=== PATIENT | female | born 1960 | race Caucasian/White ===

== ENCOUNTER → 2022-02-24 16:30 | Outpatient (CLI) | payer OTHER, SELFPAY ==
--- NOTE | 2022-02-24 16:31 | DI.MG.S_ITS ---
BILATERAL DIGITAL SCREENING MAMMOGRAM 3D/2D WITH CAD: 02/24/2022 CLINICAL: Routine screening. Comparison is made to exams dated: 09/24/2010 mammogram, 08/16/2009 mammogram, and 05/04/2007 mammogram - [facility]. There are scattered fibroglandular elements in both breasts. Current study was also evaluated with a Computer Aided Detection (CAD) system. No significant masses, calcifications, or other findings are seen in either breast. There has been no significant interval change. IMPRESSION: NEGATIVE There is no mammographic evidence of malignancy. A 1 year screening mammogram is recommended. This exam was interpreted at Station ID: [id number]. NOTE: For mammograms, a report in lay terms will be sent to the patient. Approximately 15% of breast malignancies will not be visualized mammographically. In the management of a palpable breast mass, a negative mammogram must not discourage biopsy of a clinically suspicious lesion. Electronically Signed By: Adi Tijerina M.D., jr/elinor:02/25/2022 13:13:01 letter sent: Normal Exam ACR BI-RADS Category 1: Negative 3341F
== END ==
PROVIDERS: Family Provider Family Medicine; PCP Nurse Practitioner; Referring Provider Nurse Practitioner; Visit Provider Nurse Practitioner
DX: Z12.31 Encounter for screening mammogram for malignant neoplasm of breast (principal)
CPT/HCPCS: 77063; 77067

== ENCOUNTER → 2022-03-20 09:19 | Outpatient (CLI) | payer OTHER, SELFPAY ==
[2022-03-20 11:29] LABS: Hematocrit 40.7 % (36-46); Hemoglobin 13.6 g/dL (12.0-16.0); Mean Corpuscular HGB Conc 33.4 % (30-36); Mean Corpuscular Hemoglobin 30.1 PG (26-34); Mean Corpuscular Volume 90.2 fL (80-100); Platelet Count 333 X10^3/uL (150-400); Red Blood Cell Count 4.51 X10^6/uL (4.0-5.2); Red Cell Distribution Width 14.3 % (11.6-14.8); White Blood Cell Count 7.7 X10^3/uL (4.5-11.0)
[2022-03-20 11:45] LABS: Alanine Aminotransferase 35 IU/L (<35); Albumin 4.4 g/dL (3.5-5.0); Albumin Globulin Ratio 1.5 (1.0-2.8); Alkaline Phosphatase 79 U/L (38-126); Aspartate Aminotransferase 27 IU/L (14-36); Bilirubin Total 0.5 mg/dL (0.2-1.3); Blood Urea Nitrogen 23 mg/dL (7-17); Calcium 9.4 mg/dL (8.4-10.2); Carbon Dioxide 31 mmol/L (22-32); Chloride 102 mmol/L (98-107); Cholesterol 235 mg/dL (140-199); Estimated Glomerular Filt Rate > 60 mL/min (>60); Globulin 2.9 g/dL (1.7-4.1); Glucose 100 mg/dL (70-100); HDL Cholesterol 64 mg/dL (40-60); HEMOLYSIS < 15 (0-50); LDL Cholesterol Calculated 151 mg/dL (<100); Potassium 4.1 mmol/L (3.4-5.1); Sodium 140 mmol/L (137-145); Total Protein 7.3 g/dL (6.3-8.2); Triglycerides 98 mg/dL (35-150)
[2022-03-20 12:04] LABS: Free T3, Triiodothyronine Free 3.24 pg/mL (2.77-5.27); Free T4, Direct Thyroxine 1.11 ng/dL (0.78-2.19)
[2022-03-20 12:34] LABS: Hep C Virus Ab w/Reflex Quant NEGATIVE s/c (NEGATIVE)
[2022-03-21 10:01] LABS: Creatinine Urine Random 42.6 mg/dL
[2022-03-21 10:06] LABS: Microalbumin Urine Random < 0.6 mg/dL (0-1.6)
== END ==
LOC: LAB 09:20 → RESP 09:21
PROVIDERS: Family Provider Family Medicine; PCP Nurse Practitioner; Referring Provider Nurse Practitioner; Visit Provider Nurse Practitioner
DX: Z00.00 Encounter for general adult medical examination without abnormal findings (principal); Z11.59 Encounter for screening for other viral diseases
CPT/HCPCS: 36415; 80053; 80061; 82043; 82570; 84439; 84443; 84481; 85027; 86803; 93005

== ENCOUNTER → 2022-05-14 09:12 | Outpatient (CLI) | payer OTHER, SELFPAY ==
--- NOTE | 2022-05-14 09:13 | DI.ECHO.S_ITS ---
[facility] +---------+ : : [address] : : : : [address] : : : : Phone: [phone]+ Echocardiogram Report + + :Name: BRET GUEVARA Study Date: 05/14/2022 Height: 66.5 in : :[facility] ReadingLocation: Weight: 230 lb : : Gender: Female BSA: 2.1 m2 : :: 1960 Age: 61 yrs BP: 165/109 mmHg: :Reason For Study: HYPERTENSION : :Ordering Physician: PAUL, : :MARY Performed By: Cynthia Escamilla : :Referring: MARY MILLER : + + Interpretation Summary The ejection fraction is estimated to be 60-65%. Grae I diastolic dysfunction. The right ventricle is normal in size and function. The right ventricular systolic pressure is estimated to be at least 32 mmHg based on an estimated right atrial pressure of 3 mm Hg. The left atrium is mildly dilated. No significant valvular disease. Procedure: A two-dimensional transthoracic echocardiogram with color flow and Doppler was performed. The study quality was technically adequate. There is no prior echocardiogram noted for this patient. The patient was in sinus bradycardia with heart rates between 48-56 bpm during the exam. Left Ventricle: The left ventricle is normal in size. RWT 0.4, normal geometry. The ejection fraction is estimated to be 60-65%. Left ventricular wall motion is normal. Grae I diastolic dysfunction. Right Ventricle: The right ventricle is normal in size and function. Atria: The left atrium is mildly dilated. Right atrial size is normal. There is no Doppler evidence for an interatrial shunt. Mitral Valve: The mitral valve is normal in structure and function. There is trace mitral regurgitation. Aortic Valve: The aortic valve is trileaflet. The aortic valve opens well. There is no aortic valve stenosis. No aortic regurgitation is present. Tricuspid Valve: The tricuspid valve is normal in structure and function. There is trace tricuspid regurgitation. The right ventricular systolic pressure is estimated to be at least 32 mmHg based on an estimated right atrial pressure of 3 mm Hg. Pulmonic Valve: The pulmonic valve is not well visualized. There is no pulmonic valvular regurgitation. Great Vessels: The aortic root is normal size. The ascending aorta is normal in size. The IVC is of normal diameter and collapses greater than 50% with a sniff. This suggests a low right atrial pressure of 3 mm Hg. Pericardium/ Pleura There is no pericardial effusion. There is no pleural effusion. MMode/2D Measurements & Calculations LVIDd: 5.0 cm LVOT diam: 2.0 cm LVIDs: 3.5 cm Ao root diam: 3.2 cm FS: 30.4 % asc Aorta Diam: 3.5 cm EPSS: 0.75 cm Ao Arch Diam (Prox Trans): 2.6 cm IVSd: 1.1 cm LVPWd: 1.0 cm LV tinsley. diameter/BSA (cm/m^2): 2.3 LV sys. diameter/BSA (cm/m^2): 1.6 LA A2 area: 27.0 cm2 RA long axis: 5.2 cm LA A4 area: 22.4 cm2 RA area: 20.3 cm2 LA length (vol): 5.7 cm RA vol: 67.6 ml LA vol: 90.8 ml RA : 31.7 ml/m2 LA vol index: 42.6 ml/m2 IVC diam: 1.9 cm RVD1 (basal): 3.3 cm RVD2 (mid): 2.7 cm TAPSE: 3.2 cm Doppler Measurements & Calculations Ao V2 max: 137.5 cm/sec LVOT Max Terry: 108.0 cm/sec Ao V2 mean: 107.1 cm/sec LV V1 max P.7 mmHg Ao max P.6 mmHg LV V1 VTI: 24.2 cm Ao mean P.9 mmHg AMNADA(I,D): 4.4 cm2 Ao V2 VTI: 17.5 cm AMANDA(V,D): 2.5 cm2 sev ratio: 1.4 AMANDA indexed to BSA (cm^2/m^2): 2.0 MV E max terry: 81.3 cm/sec TR max terry: 269.1 cm/sec MV A max terry: 67.8 cm/sec TR max P.0 mmHg MV E/A: 1.2 PA V2 max: 93.6 cm/sec Med Peak E' Terry: 8.4 cm/sec PA V2 mean: 66.1 cm/sec E/E' med: 9.7 PA mean P.9 mmHg Lat Peak E' Terry: 7.0 cm/sec PA pr(Accel): 22.5 mmHg E/E' lat: 11.6 E/e' average: 10.6 MV dec time: 0.26 sec [facility] 76.3 ml Reading Physician:PRIYANK
== END ==
PROVIDERS: Family Provider Family Medicine; PCP Nurse Practitioner; Referring Provider Nurse Practitioner; Visit Provider Nurse Practitioner
DX: I10 Essential (primary) hypertension (principal)
CPT/HCPCS: 93306

== ENCOUNTER → 2022-06-25 15:34 | Outpatient (CLI) | payer OTHER, SELFPAY | PROVIDERS: Family Provider Family Medicine; PCP Nurse Practitioner; Referring Provider Physician Assistant; Visit Provider Physician Assistant | DX: J32.9 Chronic sinusitis, unspecified (principal) | CPT/HCPCS: 36415 ==

== ENCOUNTER → 2022-08-24 08:31 | Outpatient (CLI) | payer OTHER, SELFPAY ==
--- NOTE | 2022-08-24 08:33 | DI.RAD.S_ITS ---
PROCEDURE: XR FOOT LT MIN 3V INDICATIONS: Left toe pain after trauma TECHNIQUE: Three views of the foot were acquired. COMPARISON: [facility], CR, XR FOOT 3+ VIEWS LEFT, 06/24/2022, 14:52. FINDINGS: Bones: Intact hardware of 2nd PIP joint arthrodesis, 2nd metatarsal head screws, and 1st phalanx bunionectomy and hallux valgus correction. Mild, stable residual hallux valgus deformity. Possible nondisplaced spiral fracture of the 5th proximal phalanx. Joint alignment remains normal proximally and distally. Soft tissues: No tibiotalar joint effusion. Achilles tendon appears normal. IMPRESSION: 1. Possible nondisplaced 5th proximal phalanx spiral fracture. Correlate with site of tenderness. 2. Intact 1st and 2nd digit hardware. Dictated by: Lilian Jose M.D. on 08/24/2022 at 11:50 Approved by: Lilian Jose M.D. on 08/24/2022 at 11:54
== END ==
PROVIDERS: Family Provider Family Medicine; PCP Nurse Practitioner; Referring Provider Nurse Practitioner; Visit Provider Nurse Practitioner
DX: M79.675 Pain in left toe(s) (principal)
CPT/HCPCS: 73630

== ENCOUNTER → 2022-10-13 14:56 | Outpatient (CLI) | payer OTHER, SELFPAY ==
[2022-10-13 18:46] LABS: Rheumatoid Factor < 8.6 IU/mL (<12.0)
[2022-10-13 22:06] LABS: Erythrocyte Sedimentation Rate 16 MM/HR (0-20)
[2022-10-15 13:47] LABS: ANA Screen, IFA Negative (.)
== END ==
PROVIDERS: Family Provider Family Medicine; PCP Nurse Practitioner; Referring Provider Nurse Practitioner; Visit Provider Nurse Practitioner
DX: M79.671 Pain in right foot (principal); M79.672 Pain in left foot; R79.82 Elevated C-reactive protein (CRP); Z78.9 Other specified health status; Z88.1 Allergy status to other antibiotic agents; A69.23 Arthritis due to Lyme disease
CPT/HCPCS: 36415; 85651; 86038; 86430

== ENCOUNTER → 2022-12-22 09:39 | Outpatient (CLI) | payer OTHER, SELFPAY ==
--- NOTE | 2022-12-22 | DI.RAD.S_ITS ---
PROCEDURE: FL JOINT INJECTION LARGE LT INDICATIONS: Primary osteoarthritis, left shoulder COMPARISON: None. TECHNIQUE: The indications, alternatives, benefits, risks, and complications of the procedure were explained to the patient. Written informed consent was obtained and placed in the chart. The patient was placed in an appropriate position on the fluoroscopy table, and a site was chosen for percutaneous access under fluoroscopic guidance. The site was prepped and draped in a sterile fashion. Local anesthetic was administered using a 1% lidocaine solution. A hypodermic or spinal needle was then used to access the symptomatic joint. Intra-articular location of the needle tip was confirmed by injecting a small amount of contrast, followed by steroid administration. The needle was then withdrawn, and a bandage applied to the puncture site. FINDINGS: Joint injected: Left acromioclavicular joint Medications injected: 2 mL of 40 mg/mL Kenalog and 0.5% Ropivacaine mixture. Patient's pain before injection: 5 out of 10. Patient's pain after injection: 0 out of 10. Complications: None. IMPRESSION: Successful fluoroscopically guided administration of steroid and anaesthetic solution into the left acromioclavicular joint. Dictated by: Gilberto James M.D. on 12/22/2022 at 13:27 Approved by: Gilberto James M.D. on 12/22/2022 at 13:28
== END ==
PROVIDERS: Family Provider Family Medicine; PCP Nurse Practitioner; Referring Provider Orthopaedic Surgery; Visit Provider Orthopaedic Surgery
DX: M19.012 Primary osteoarthritis, left shoulder (principal)
CPT/HCPCS: 20610

== ENCOUNTER → 2022-12-25 08:09 | Outpatient (CLI) | payer OTHER, SELFPAY ==
[2022-12-25 09:06] LABS: Influenza A - CEPHEID Flu A NEGATIVE (NEGATIVE); Influenza B - CEPHEID Flu B NEGATIVE (NEGATIVE); Respiratory Syncytial Virus Negative (Negative)
[2022-12-25 09:07] LABS: COVID-19 CEPHEID 4-PLEX PCR Negative (Negative)
== END ==
PROVIDERS: Family Provider Family Medicine; PCP Nurse Practitioner; Visit Provider Registered Nurse
DX: R05.9 Cough, unspecified (principal); R52 Pain, unspecified; Z20.822 Contact with and (suspected) exposure to COVID-19
CPT/HCPCS: 0241U

== ENCOUNTER → 2023-09-01 13:44 | Outpatient (CLI) | payer OTHER, SELFPAY ==
--- NOTE | 2023-09-01 | DI.US.S_ITS ---
PROCEDURE: US PERIPH VENOUS LOW EXTREM RT INDICATIONS: RIGHT LEG SWELLING. RECENT LEFT FOOT SURGEY. HX OF DVT. TECHNIQUE: Real-time imaging, as well as color and pulse Doppler interrogation, were performed of the lower extremity deep veins from the inguinal ligament to the popliteal fossa, with documentation of the visualized calf veins. COMPARISON: None. FINDINGS: The common femoral, femoral, popliteal, and the visualized calf veins are normally compressible, and free of intraluminal thrombus. Color and pulse Doppler demonstrate normal phasic intraluminal flow. There is normal augmentation response to distal compression maneuver. IMPRESSION: No findings of lower extremity deep venous thrombosis. Approved by: Venancio Giles M.D. on 09/01/2023 at 13:56
--- NOTE | 2023-09-01 13:45 | DI.RAD.S_ITS ---
PROCEDURE: XR KNEE RT 3V INDICATIONS: right knee pain and edema TECHNIQUE: 3 views of the knee were acquired. COMPARISON: None. FINDINGS: Bones: No fractures or dislocations. No suspicious bony lesions. Soft tissues: No joint effusion. No suspicious soft tissue calcifications. IMPRESSION: No visualized acute fracture or dislocation. However, if clinical concern and/or pain persist, short interval imaging followup in 7-10 days is recommended, as occult injury cannot be definitively excluded. Dictated by: Yola Linda M.D. on 09/01/2023 at 14:23 Approved by: Yola Linda M.D. on 09/01/2023 at 14:23
== END ==
PROVIDERS: Family Provider Family Medicine; PCP Nurse Practitioner; Referring Provider Nurse Practitioner; Visit Provider Nurse Practitioner
DX: M25.561 Pain in right knee (principal); Z86.718 Personal history of other venous thrombosis and embolism; M25.461 Effusion, right knee
CPT/HCPCS: 73562; 93971

== ENCOUNTER → 2024-05-24 08:21 | Outpatient (CLI) | payer OTHER, SELFPAY | PROVIDERS: Family Provider Family Medicine; PCP Nurse Practitioner; Visit Provider Student in an Organized Health Care Education/Training Program | DX: J02.9 Acute pharyngitis, unspecified (principal) | CPT/HCPCS: 87070 ==

== ENCOUNTER → 2024-06-29 08:08 | Outpatient (CLI) | payer OTHER, SELFPAY ==
[2024-06-29 08:40] LABS: Hematocrit 41.9 % (36-46); Hemoglobin 14.1 g/dL (12.0-16.0); Mean Corpuscular HGB Conc 33.8 % (30-36); Mean Corpuscular Hemoglobin 30.9 PG (26-34); Mean Corpuscular Volume 91.4 fL (80-100); Platelet Count 317 X10^3/uL (150-400); Red Blood Cell Count 4.58 X10^6/uL (4.0-5.2); Red Cell Distribution Width 14.9 % (11.6-14.8); White Blood Cell Count 6.8 X10^3/uL (4.5-11.0)
[2024-06-29 09:05] LABS: Alanine Aminotransferase 17 IU/L (<35); Albumin 4.3 g/dL (3.5-5.0); Albumin Globulin Ratio 1.8 (1.0-2.8); Alkaline Phosphatase 78 U/L (38-126); Aspartate Aminotransferase 22 IU/L (14-36); BUN Creatinine Ratio 21.7 (6-22); Bilirubin Total 0.7 mg/dL (0.2-1.3); Blood Urea Nitrogen 20 mg/dL (7-17); Calcium 9.9 mg/dL (8.4-10.2); Carbon Dioxide 30 mmol/L (22-32); Chloride 100 mmol/L (98-107); Cholesterol 251 mg/dL (140-199); Estimated Glomerular Filt Rate > 60 mL/min (>60); Globulin 2.4 g/dL (1.7-4.1); Glucose 98 mg/dL (80-110); HDL Cholesterol 55 mg/dL (40-60); HEMOLYSIS < 15 (0-50); LDL Cholesterol Calculated 174 mg/dL (<100); Sodium 139 mmol/L (137-145); Total Protein 6.7 g/dL (6.3-8.2); Triglycerides 108 mg/dL (35-150)
[2024-06-29 09:08] LABS: Hemoglobin A1C% w Est Avg Glu 5.3 % (4.0-6.0)
[2024-06-29 09:17] LABS: Free T3, Triiodothyronine Free 3.19 pg/mL (2.77-5.27)
[2024-06-29 09:31] LABS: Thyroid Stimulating Hormone 3.96 uIU/mL (0.47-4.68)
[2024-06-29 09:52] LABS: Creatinine Urine Random 117.05 mg/dL
[2024-06-29 11:34] LABS: Microalbumin Urine Random < 0.6 mg/dL (0-1.6)
== END ==
PROVIDERS: Family Provider Family Medicine; PCP Nurse Practitioner; Referring Provider Nurse Practitioner; Visit Provider Nurse Practitioner
DX: Z00.00 Encounter for general adult medical examination without abnormal findings (principal)
CPT/HCPCS: 36415; 80053; 80061; 82043; 82570; 83036; 84439; 84443; 84481; 85027

== ENCOUNTER → 2024-11-29 15:22 | Outpatient (CLI) | payer OTHER, SELFPAY | PROVIDERS: Family Provider Family Medicine; PCP Nurse Practitioner; Visit Provider Physician Assistant Surgical | DX: R30.0 Dysuria (principal) | CPT/HCPCS: 87086; 87210 ==

== ENCOUNTER → 2025-01-25 11:42 | Outpatient (CLI) | payer OTHER, SELFPAY ==
--- NOTE | 2025-01-25 11:44 | DI.MG.S_ITS ---
MM screening mammo BI: 01/25/2025. BI-RADS: 0 CLINICAL: 64-year old female for bilateral screening mammogram. Tyrer-Cuzick lifetime risk of 13.4%. No personal or first-degree family history of breast cancer. Current reported family history of breast cancer: maternal grandmother and maternal aunt. The patient reports testing negative for BRCA gene mutation. PRIOR EXAMS 02/24/2022. MAMMOGRAPHY TECHNIQUE: 2D and 3D (tomosynthesis) digital mammographic views obtained, with additional images as needed for full coverage. Current study was also evaluated with a Computer Aided Detection (CAD) system. DENSITY B. There are scattered areas of fibroglandular density. MAMMOGRAPHY FINDINGS Right: MLO only, Central, Middle depth, measuring 1 cm: Asymmetry needing additional imaging evaluation. Left: No suspicious mass, asymmetry, microcalcification, or other abnormality seen. IMPRESSION: Right (Asymmetry): MLO only, Central, Middle depth, measuring 1 cm * Incomplete - asymmetry needing additional imaging evaluation. Left * No evidence of malignancy. RECOMMENDATIONS Right: MLO only, Central, Middle depth * Further evaluation with diagnostic mammography and diagnostic ultrasound. OVERALL ASSESSMENT CATEGORY BI-RADS-0: Incomplete - Need Additional Imaging Evaluation. ELECTRONICALLY SIGNED: Nelly Suarez M.D. on 01/25/2025 at 04:26:50 PM PT Interpreting Station ID: [id number]
== END ==
PROVIDERS: Family Provider Family Medicine; PCP Nurse Practitioner Family; Referring Provider Nurse Practitioner Family; Visit Provider Nurse Practitioner Family
DX: Z12.31 Encounter for screening mammogram for malignant neoplasm of breast (principal); Z80.3 Family history of malignant neoplasm of breast
CPT/HCPCS: 77063; 77067

== ENCOUNTER → 2025-02-23 09:36 | Outpatient (CLI) | payer OTHER, SELFPAY ==
--- NOTE | 2025-02-23 09:36 | DI.US.S_ITS ---
MM diagnostic mammo unilat RT, US breast RT limited: 02/23/2025 BI-RADS: 3 CLINICAL: 64-year old female for right diagnostic mammogram and right diagnostic breast ultrasound that is a recall from screening on 01/25/2025. Tyrer-Cuzick lifetime risk of 13.4%. No personal or first-degree family history of breast cancer. Current reported family history of breast cancer: maternal grandmother and maternal aunt. The patient reports testing negative for BRCA gene mutation. PRIOR EXAMS 01/25/2025, 02/24/2022. MAMMOGRAPHY TECHNIQUE: 2D and 3D (tomosynthesis) digital mammographic views obtained, with additional images as needed for full coverage. Current study was also evaluated with a Computer Aided Detection (CAD) system. ULTRASOUND TECHNIQUE Real-time shepherd scale and color doppler imaging of the area of clinical interest was performed with image documentation. TARGETED Right Breast Ultrasound: Real-time ultrasound exam was performed focused to area of clinical and/or imaging concern. DENSITY Right: B. There are scattered areas of fibroglandular density. MAMMOGRAPHY FINDINGS Right: MLO only, Central, Middle depth, measuring 1.6 x 0.3 cm, previously measuring 1 cm: Correlating with findings on screening mammogram there is an asymmetry seen only on one view that is unchanged in size and appearance. ULTRASOUND FINDINGS Right: Outer at 9:00, 3 cm from nipple, measuring 0.3 cm. Previous report: MLO only, Central: There is a dilated duct containing echogenic material. This could correlate to the mammographic finding. IMPRESSION: Right (Duct): Outer at 9:00, 3 cm from nipple, measuring 0.3 cm. Previous report: MLO only, Central * Probably Benign. RECOMMENDATIONS Right * Six month followup with diagnostic ultrasound and diagnostic mammography. COMMENTS: Findings and recommendations were conveyed to the patient during today's evaluation. OVERALL ASSESSMENT CATEGORY BI-RADS-3: Probably Benign. ELECTRONICALLY SIGNED: Nelly Suarez M.D. on 02/23/2025 at 10:42:35 AM PT Interpreting Station ID: [id number]
== END ==
PROVIDERS: Family Provider Family Medicine; PCP Nurse Practitioner Family; Referring Provider Nurse Practitioner Family; Visit Provider Nurse Practitioner Family
DX: N64.89 Other specified disorders of breast (principal); Z80.3 Family history of malignant neoplasm of breast
CPT/HCPCS: 76642; 77065; G0279

== ENCOUNTER → 2025-04-17 14:59 | Outpatient (CLI) | payer OTHER, SELFPAY ==
--- NOTE | 2025-04-17 15:01 | DI.ECHO.S_ITS ---
[place] [facility]---------+ [facility] : : [address] : : [place] : : [address] : : Phone: [phone] Echocardiogram Report + + :Name: BRET GUEVARA Study Date: 04/17/2025 Height: 66 in : :[facility] ReadingLocation: Weight: 180 lb : : Gender: Female BSA: 1.9 m2 : :: 1960 Age: 64 yrs BP: 164/87 mmHg: :Reason For Study: DIASTOLIC DYSFUNCTION, HYPERTENSION : :Ordering Physician: MICHAEL, : :LANA Performed By: Adi Castillo : :Referring: LANA RODRIGUEZ : + + Interpretation Summary Sinus bradycardia. Heart rate is 40 bpm. Uncontrolled hypertension. Normal LV size and wall thickness. Normal wall motion and LV systolic function. Ejection fraction of 60-65%. Moderate left atrial enlargement and mild right atrial enlargement.. No significant valvular abnormalities. Compared to prior echo obtained May 14, 2022, bradycardia is worse. Heart rate is down from 56 bpm to 40 bpm. Procedure: A two-dimensional transthoracic echocardiogram with color flow and Doppler was performed. The study quality was technically good. Comparison is made with the echocardiogram of 05/14/2022. The patient was in a bradycardic rhythm during the exam. Left Ventricle: The left ventricle is normal in size. Left ventricular wall thickness is mildly increased. There is no ventricular septal defect visualized. The ejection fraction is estimated to be 60-65%. There are no focal wall motion abnormalities. Grade I diastolic dysfunction. Right Ventricle: The right ventricle is normal in size and function. Atria: The left atrium is moderately dilated. The right atrium is mildly dilated. There is no Doppler evidence for an interatrial shunt. Mitral Valve: The mitral valve leaflets appear mildly thickened, but open well. There is trace mitral regurgitation. Aortic Valve: The aortic valve is trileaflet. The aortic valve opens well. No aortic regurgitation is present. Tricuspid Valve: The tricuspid valve leaflets are thin and pliable. There is mild tricuspid regurgitation. The right ventricular systolic pressure is estimated to be at least 35 mmHg based on an estimated right atrial pressure of 8 mm Hg. Pulmonic Valve: The pulmonic valve is not well seen, but is grossly normal. There is no pulmonic valvular regurgitation. Great Vessels: The aortic root is normal size. The dimensions of the ascending aorta are normal. The pulmonary artery is normal size. The IVC is dilated (diameter is greater than 2.1 cm) yet it collapses greater than 50% with a sniff. This suggests a right atrial pressure of 8 mm Hg. Pericardium/ Pleura There is no pericardial effusion. There is no pleural effusion. MMode/2D Measurements & Calculations LVIDd: 4.7 cm LVOT diam: 1.8 cm LVIDs: 3.2 cm Ao root diam: 3.2 cm FS: 33.1 % asc Aorta Diam: 3.6 cm EPSS: 0.52 cm IVSd: 1.2 cm LVPWd: 0.96 cm LV tinsley. diameter/BSA (cm/m^2): 2.5 LV sys. diameter/BSA (cm/m^2): 1.7 LA A2 area: 18.9 cm2 RA long axis: 6.2 cm LA A4 area: 28.5 cm2 RA area: 22.4 cm2 LA length (vol): 6.9 cm RA vol: 69.4 ml LA vol: 66.1 ml RA : 36.3 ml/m2 LA vol index: 34.6 ml/m2 IVC diam: 2.3 cm RVD1 (basal): 3.3 cm RVD2 (mid): 2.6 cm TAPSE: 3.6 cm Doppler Measurements & Calculations Ao V2 max: 152.5 cm/sec LVOT Max Terry: 116.9 cm/sec Ao V2 mean: 109.1 cm/sec LV V1 max P.5 mmHg Ao max P.3 mmHg LV V1 VTI: 32.4 cm Ao mean P.2 mmHg AMANDA(I,D): 2.3 cm2 Ao V2 VTI: 37.8 cm AMANDA(V,D): 2.0 cm2 sev ratio: 0.86 AMANDA indexed to BSA (cm^2/m^2): 1.2 MV E max terry: 98.7 cm/sec TR max terry: 260.2 cm/sec MV A max terry: 59.9 cm/sec TR max P.1 mmHg MV E/A: 1.6 PA V2 max: 94.1 cm/sec Med Peak E' Terry: 9.3 cm/sec PA V2 mean: 64.8 cm/sec E/E' med: 10.6 PA mean P.9 mmHg Lat Peak E' Terry: 9.7 cm/sec PA pr(Accel): 8.8 mmHg E/E' lat: 10.2 E/e' average: 10.4 MV dec time: 0.16 sec SV(LVOT): 85.8 ml Electronically signed by: Teresa Dickerson M.D. on [place] Physician:04/19/2025 12:40 PM
== END ==
PROVIDERS: PCP Nurse Practitioner Family; Referring Provider Nurse Practitioner Family; Visit Provider Nurse Practitioner Family
DX: I07.1 Rheumatic tricuspid insufficiency (principal); I10 Essential (primary) hypertension
CPT/HCPCS: 93306

== ENCOUNTER → 2025-05-02 11:23 | Outpatient (CLI) | payer OTHER, SELFPAY ==
[2025-05-02 12:38] LABS: Add Manual Diff / Slide Review NO; Basophils Absolute Auto 0 /uL (0-100); Basophils Percent Auto 0.3 % (0-2); Eosinophils Absolute Auto 0 /uL (0-450); Eosinophils Percent Auto 0.4 % (2-4); Hematocrit 40.5 % (36-46); Hemoglobin 13.9 g/dL (12.0-16.0); Lymphocytes Absolute Auto 2100 /uL (1100-4500); Lymphocytes Percent Auto 30.3 % (25-40); Mean Corpuscular HGB Conc 34.3 % (30-36); Mean Corpuscular Hemoglobin 31.8 PG (26-34); Mean Corpuscular Volume 92.7 fL (80-100); Monocytes Absolute Auto 500 /uL (0-900); Monocytes Percent Auto 7.9 % (3-14); Neutrophils Absolute Auto 4100 /uL (1500-7000); Neutrophils Percent Auto 61.1 % (50-75); Platelet Count 261 X10^3/uL (150-400); Red Blood Cell Count 4.36 X10^6/uL (4.0-5.2); Red Cell Distribution Width 14.5 % (11.6-14.8); White Blood Cell Count 6.8 X10^3/uL (4.5-11.0)
[2025-05-04 19:01] LABS: Alanine Aminotransferase 57 IU/L (<35); Albumin 4.3 g/dL (3.5-5.0); Albumin Globulin Ratio 1.5 (1.0-2.8); Alkaline Phosphatase 70 U/L (38-126); Aspartate Aminotransferase 31 IU/L (14-36); BUN Creatinine Ratio 34.1 (6-22); Bilirubin Total 0.5 mg/dL (0.2-1.3); Blood Urea Nitrogen 30 mg/dL (7-17); Calcium 9.8 mg/dL (8.4-10.2); Carbon Dioxide 32 mmol/L (22-32); Chloride 101 mmol/L (98-107); Cholesterol 221 mg/dL (140-199); Estimated Glomerular Filt Rate > 60 mL/min (>60); Globulin 2.9 g/dL (1.7-4.1); Glucose 84 mg/dL (70-99); HDL Cholesterol 65 mg/dL (40-60); HEMOLYSIS < 15 (0-50); LDL Cholesterol Calculated 138 mg/dL (<100); Potassium 4.6 mmol/L (3.4-5.1); Sodium 137 mmol/L (137-145); Total Protein 7.2 g/dL (6.3-8.2); Triglycerides 88 mg/dL (35-150)
[2025-05-04 19:31] LABS: TSH w/ Reflex to FT4 0.11 uIU/mL (0.47-4.68)
[2025-05-04 19:57] LABS: Free T4, Direct Thyroxine 1.43 ng/dL (0.78-2.19)
== END ==
PROVIDERS: PCP Nurse Practitioner Family; Referring Provider Nurse Practitioner Family; Visit Provider Nurse Practitioner Family
DX: R00.1 Bradycardia, unspecified (principal)
CPT/HCPCS: 36415; 80053; 80061; 84439; 84443; 85025

== ENCOUNTER → 2025-05-14 13:35 | Outpatient (CLI) | payer OTHER, SELFPAY | LOC: CAR 13:36 | PROVIDERS: PCP Nurse Practitioner Family; Referring Provider Nurse Practitioner Family; Visit Provider Nurse Practitioner Family | DX: R00.1 Bradycardia, unspecified (principal) | CPT/HCPCS: 93242 ==

== ENCOUNTER → 2025-05-14 14:17 | Outpatient (CLI) | payer OTHER, SELFPAY ==
[2025-05-14 16:46] LABS: Alanine Aminotransferase 38 IU/L (<35); Albumin 4.3 g/dL (3.5-5.0); Albumin Globulin Ratio 1.8 (1.0-2.8); Alkaline Phosphatase 60 U/L (38-126); Globulin 2.4 g/dL (1.7-4.1); HEMOLYSIS < 15 (0-50); Total Protein 6.7 g/dL (6.3-8.2)
[2025-05-14 17:09] LABS: Free T3, Triiodothyronine Free 3.34 pg/mL (2.77-5.27); Free T4, Direct Thyroxine 0.93 ng/dL (0.78-2.19)
[2025-05-14 17:22] LABS: Thyroid Stimulating Hormone 1.22 uIU/mL (0.47-4.68)
== END ==
PROVIDERS: PCP Nurse Practitioner Family; Referring Provider Nurse Practitioner Family; Visit Provider Nurse Practitioner Family
DX: R74.01 Elevation of levels of liver transaminase levels (principal); R79.89 Other specified abnormal findings of blood chemistry
CPT/HCPCS: 36415; 80076; 84439; 84443; 84481; 93242

== ENCOUNTER → 2025-08-28 13:25 | Outpatient (CLI) | payer OTHER, SELFPAY ==
--- NOTE | 2025-08-28 13:26 | DI.US.S_ITS ---
US breast RT limited, MM diagnostic mammo unilat RT: 08/28/2025 BI-RADS: 4A CLINICAL: 64-year old female for right diagnostic mammogram and right diagnostic breast ultrasound that is a follow-up to diagnostic mammogram on 02/23/2025. Tyrer- Cuzick lifetime risk of 13.4%. No personal or first-degree family history of breast cancer. Current reported family history of breast cancer: maternal grandmother and maternal aunt. The patient reports testing negative for BRCA gene mutation. PRIOR EXAMS 02/23/2025, 01/25/2025, 02/24/2022. MAMMOGRAPHY TECHNIQUE: 2D and 3D (tomosynthesis) digital mammographic views obtained, with additional images as needed for full coverage. Current study was also evaluated with a Computer Aided Detection (CAD) system. ULTRASOUND TECHNIQUE: Real-time shepherd scale and color doppler imaging of the area of clinical interest was performed with image documentation. TARGETED Right Breast Ultrasound: Real-time ultrasound exam was performed focused to area of clinical and/or imaging concern. DENSITY Right: B. There are scattered areas of fibroglandular density. MAMMOGRAPHY FINDINGS Right: MLO only, Central, Middle depth: Correlating with prior imaging concern, there is a stable asymmetry seen only on one view that is unchanged in size and appearance. ULTRASOUND FINDINGS Right: Outer at 9:00, 3 cm from nipple, measuring 0.6 x 0.2 cm: Correlating with prior imaging concern there is a dilated duct present. The duct contains intraductal debris versus a solid mass. IMPRESSION: Right (Duct): Outer at 9:00, 3 cm from nipple, measuring 0.6 x 0.2 cm * Low Suspicion for Malignancy. RECOMMENDATIONS Right: Outer at 9:00, 3 cm from nipple * Ultrasound-guided biopsy for further evaluation (Recommend correlation of the location of the biopsy marker to the asymmetry on the post-procedure mammogram. If the biopsied finding is separate, recommend short interval mammographic follow up of the asymmetry in 6 months). COMMENTS: Findings and recommendations were conveyed to the patient during today's evaluation by Dr. Suarez. OVERALL ASSESSMENT CATEGORY BI-RADS-4: Suspicious. ELECTRONICALLY SIGNED: Nelly Suarez M.D. on 08/28/2025 at 04:00:30 PM PT Interpreting Station ID: [id number]
== END ==
LOC: MAMMO 13:26
PROVIDERS: PCP Nurse Practitioner Family; Referring Provider Nurse Practitioner Family; Visit Provider Nurse Practitioner Family
DX: R92.8 Other abnormal and inconclusive findings on diagnostic imaging of breast (principal)
CPT/HCPCS: 76642; 77065; G0279

== ENCOUNTER → 2025-09-21 13:26 | Outpatient (CLI) | payer OTHER, SELFPAY ==
--- NOTE | 2025-09-21 | PATH_ITS ---
[facility] Accession Number: [id number] No. of containers..01 Tissue . 01 Material submitted: . breast - RIGHT BREAST MASS 9:00 3CMFN . 01 Diagnosis: RIGHT BREAST MASS 9 O'CLOCK 3 CM FROM NIPPLE: Benign fibroadipose tissue with features of a benign cyst lining, hyalinizing fibrosis, and mild chronic inflammation. No other breast tissue identified. Please correlate with clinical and imaging studies. LYK 09/25/2025 1429 Local . 01 Comment: This case was also reviewed by Dr. Liliana Yoon (Julie), who agrees with the interpretation. . 01 Electronically signed: . Marilia Geronimo MD, Pathologist NPI- [id number] . 01 Gross description: . Received one formalin-filled container, labeled with the patient's name and labeled brst BX. The specimen consists of four yellow-shepherd to shepherd-munoz cylindrical-shaped portions of tissue which range in size from 0.3 x 0.3 x 0.1 cm to 0.4 x 0.1 x 0.1 cm. All fragments are totally submitted in one cassette. . Collection date: 09/21/2025 at 1442. No time in formalin provided. No cold ischemic time can be calculated. Total fixation time approximately 37 hours. ([facility]:cmc10 1754) /MRV 09/22/2025 1031 Local . 01 Microscopic: . Immunostains are performed to further evaluate architecture. The control stains show appropriate reactivity. . Block A1 p63: No definite ductules/lobules identified. Myosin: No definite ductules/lobules identified. . *This teste was developed and the performance characteristics were validated by [facility]. It has not been cleared or approved by the [place] Food and Drug Administration. . 01 Pathologist provided ICD-10: D24.9 . 01 CPT . 264327, D02408 Specimen Comment: A courtesy copy of this report has been sent to [phone] Performed at: [address] [id number] MD Angelo Rodriguez MD Phone: [phone]
--- NOTE | 2025-09-21 13:30 | DI.US.S_ITS ---
US breast ndl core biopsy RT: 09/21/2025. Rad-Path Correlation: Pending CLINICAL: 64-year old female for right procedure that resulted from diagnostic mammogram on 08/28/2025. Tyrer-Cuzick lifetime risk of 13.4%. No personal or first-degree family history of breast cancer. Current reported family history of breast cancer: maternal grandmother and maternal aunt. The patient reports testing negative for BRCA gene mutation. The patient had a prior right breast biopsy. CONSENT Risks including but not limited to bleeding and infection, benefits and alternatives were discussed with the patient. The patient agreed to the procedure and signed informed consent. Time out procedure was used. ROUTINE Right: Patient positioned in the supine or supine-oblique position, prepped and draped in the usual manner using sterile technique. TECHNIQUE Right Breast: Outer at 9:00, 3 cm from nipple: Morphology: Oval mass measurin.6cm. Procedure: Ultrasound-guided core biopsy of a mass with Mini Cork marker placement. Device: 18-gauge core biopsy instrument. Temno. Approach: Lateral. Anesthesia: Local anesthesia obtained using 1%-lidocaine. Skin Entry: Direct. Passes: 7. Targeting Confirmation: Real-time Observation and Post-Procedure Imaging. Marker Placement: Mini cork marker placed in target location. Post-procedure imaging: Post-procedure imaging confirms the marker to be in target location. Rad/Path Correlation: Pending receipt of pathology report. Conclusion: Ultrasound-guided Core biopsy with post-procedure CC and ML mammographic views with marker placement, Right Breast: Outer at 9:00, 3 cm from nipple PROCEDURE NOTE Intraductal mass. Exam was performed by Dr. Coombs and Adonay Ramon. COMPLICATIONS: No complications were encountered while the patient was in our department. DISPOSITION The patient left our department in good condition with aftercare instructions and urged to contact us should any problem arise. The breast was compressed to achieve hemostasis. SUMMARY Right Breast: Outer at 9:00, 3 cm from nipple: Ultrasound-guided core biopsy of a mass with Mini Cork marker placement. PATHOLOGY Right Breast: Outer at 9:00, 3 cm from nipple: Radiologist-Pathologist Correlation: Pending receipt of pathology report. ELECTRONICALLY SIGNED: Gilberto James M.D. on 09/24/2025 at 03:13:15 PM PT Interpreting Station ID: [id number]
--- NOTE | 2025-09-21 13:30 | DI.MG.S_ITS ---
MM clip placement RT: 09/21/2025. BI-RADS: None CLINICAL: 64-year old female for right diagnostic mammogram. Tyrer-Cuzick lifetime risk of 13.4%. No personal or first-degree family history of breast cancer. Current reported family history of breast cancer: maternal grandmother and maternal aunt. The patient reports testing negative for BRCA gene mutation. The patient had a prior right breast biopsy. PRIOR EXAMS: Mammogram(s): 08/28/2025, 02/23/2025, 01/25/2025. Breast Ultrasound(s): 08/28/2025, 02/23/2025. MAMMOGRAPHY TECHNIQUE: 2D digital mammographic views obtained, with additional images as needed for full coverage. DENSITY Right: B. There are scattered areas of fibroglandular density. MAMMOGRAPHY FINDINGS Right: Outer at 9:00, Anterior depth: There is a (Mini Cork) biopsy marker in targeted location. IMPRESSION: Right * Biopsy marker present. OVERALL ASSESSMENT CATEGORY BI-RADS None: This exam requires no BI-RADS. ELECTRONICALLY SIGNED: Gilberto James M.D. on 09/24/2025 at 01:17:21 PM PT Interpreting Station ID: [id number]
== END ==
LOC: US 13:29
PROVIDERS: PCP Nurse Practitioner Family; Referring Provider Nurse Practitioner Family; Visit Provider Nurse Practitioner Family
DX: R92.8 Other abnormal and inconclusive findings on diagnostic imaging of breast (principal); N60.21 Fibroadenosis of right breast
CPT/HCPCS: 19083; 77065